=== PATIENT | female | born 1960 | race Caucasian/White ===

== ENCOUNTER 2017-06-07 02:56 | Emergency (ER) | payer BC ==
[2017-06-07 03:02] VITALS: BP 111/76
--- NOTE | 2017-06-07 07:22 | ED ---
Marcelino aLy SooYoung, scribed for Mason Newsome MD on 06/07/17 at 0307 . Medical Screening - HPI Summary HPI Summary: A 56 y/o F brought in by police presents to ED for legal blood draw. Denies injury, abd pain. Denies alcohol tonight. - History of Current Complaint Chief Complaint: EDGeneral Stated Complaint: LEGAL BLOOD DRAW Associated Signs and Symptoms: Negative PMH/Surg Hx/FS Hx/Imm Hx Previously Healthy: No Musculoskeletal History: Reports: Hx Back Problems - Chronic low back pain Psychiatric History: Reports: Hx Depression, Other Psychiatric Issues/Disorders - hx alcoholism, rehab - Cancer History Hx Chemotherapy: No Hx Radiation Therapy: No - Surgical History Surgery Procedure, Year, and Place: Right Hand Index Finger Surgery; Eye Surgery ; Tonsillectomy Infectious Disease History: Yes Infectious Disease History: Reports: Hx Hepatitis - hep b hx, Hx of Known/ Suspected MRSA Denies: Traveled Outside the [place] in Last 30 Days - Family History Known Family History: Positive: Other - Breast CA - Social History Occupation: Employed Full-time Lives: With Family Alcohol Use: None Hx Substance Use: No Substance Use Type: Reports: None Substance Use Comment - Amount & Last Used: In recovery foe 19 yrs Hx Tobacco Use: Yes Smoking Status (MU): Heavy Every Day Tobacco Smoker Type: Cigarettes Amount Used/How Often: 1 PPD Have You Smoked in the Last Year: Yes Review of Systems Negative: Fever Negative: Abdominal Pain All Other Systems Reviewed And Are Negative: Yes Physical Exam - Summary Physical Exam Summary: The patient is well-nourished in no acute distress and in no acute pain. Pt smells of ETOH. The skin is warm and dry and skin color reflects adequate perfusion. HEENT: The head is normocephalic and atraumatic. The pupils are equal and reactive. The conjunctivae are clear and without drainage. Nares are patent and without drainage. Mouth reveals moist mucous membranes and the throat is without erythema and exudate. The external ears are intact. The ear canals are patent and without drainage. = Neck is supple with full range of motion and non-tender. There are no carotid bruits. There is no neck vein distension. Respiratory: Chest is non-tender. Lungs are clear to auscultation and breath sounds are symmetrical and equal. Cardiovascular: Heart is regular rate and rhythm. There is no murmur or rub auscultated. There is no peripheral edema and pulses are symmetrical and equal. Abdomen: The abdomen is soft and non-tender. There are normal bowel sounds heard in all four quadrants and there is no organomegaly palpated. Musculoskeletal: There is no back pain noted. Extremities are non-tender with full range of motion. There is good capillary refill. There is no peripheral edema or calf tenderness elicited. Neurological: Patient is alert and oriented to person, place and time. The patient has symmetrical motor strength in all four extremities. Cranial nerves are grossly intact. Deep tendon reflexes are symmetrical and equal in all four extremities. Psychiatric: The patient has an appropriate affect and does not exhibit any anxiety or depression. Triage Information Reviewed: Yes Vital Signs On Initial Exam: Initial Vitals Temp Pulse Resp BP Pulse Ox 98 F 87 14 111/76 100 06/07/17 02:59 06/07/17 02:59 06/07/17 02:59 06/07/17 02:59 06/07/17 02:59 Vital Signs Reviewed: Yes Diagnostics - Vital Signs Vital Signs Temp Pulse Resp BP Pulse Ox 06/07/17 02:59 98 F 87 14 111/76 100 - Laboratory Lab Statement: Any lab studies that have been ordered have been reviewed, and results considered in the medical decision making process. Course/Dx - Diagnoses Provider Diagnoses: legal blood draw, no evidence of injuries Discharge - Discharge Plan Condition: Stable Disposition: OTHER Discharge Disposition Comment: Custody of police. Referrals: Aakash Aguillon MD [Primary Care Provider] - The documentation as recorded by the Marcelino reyes SooYoung accurately reflects the service I personally performed and the decisions made by , Mason Newsome MD.
== END 2017-06-07 03:21 ==
LOC: ED 02:56
DX: Z02.83 Encounter for blood-alcohol and blood-drug test (principal); F17.210 Nicotine dependence, cigarettes, uncomplicated
CPT/HCPCS: 99282

== ENCOUNTER 2018-05-07 14:43 | Emergency (ER) | payer BC ==
[2018-05-07 15:35] LABS: ABS Basophils 0 10^3/ul (0-0.2); ABS Eosinophils 0 10^3/ul (0-0.6); ABS Lymphocytes 1.8 10^3/ul (1.0-4.8); ABS Monocytes 0.4 10^3/ul (0-0.8); ABS Neutrophils 6.2 10^3/ul (1.5-7.7); ABS Nucleated RBC 0 10^3/ul; Eosinophil % 0.3 % (0-6); Hematocrit 38 % (35-47); Hemoglobin 12.7 g/dl (12.0-16.0); Lymphocyte % 21.4 % (25-47); Mean Corpuscular HGB Conc 34 g/dl (31-36); Mean Corpuscular Hemoglobin 29 pg (27-31); Mean Corpuscular Volume 85 fL (80-97); Mean Platelet Volume 7.9 um3 (7.4-10.4); Nucleated Red Blood Cells % 0.1; Platelet Count 381 10^3/ul (150-450); Red Cell Distribution Width 14 % (10.5-15); White Blood Count 8.4 10^3/ul (3.5-10.8)
--- NOTE | 2018-05-07 15:36 | ED ---
Psychiatric Complaint - HPI Summary HPI Summary: This is scribe Brent Slaughter documenting for attending Dr. Taz Mendoza This patient is a 57 year old F presenting to [facility] accompanied by her partner with a chief complaint of SIB since 1 year ago, but worse since 2 or 3 months ago. Pts partner is a nurse at [employer]. She endorses patient has a history of depression, has been picking at her skin compulsively, states patient sits in her car staring off for hours, sometimes doesnt come home at night, misses work the time, has a gambling problem, is anxious, and endorsed to her that she has SI. She states that patient has self-mutilated herself. 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 Patient needs someone to talk to and someone to help her with medications. Per patient: She endorses anxiety, compulsive behavior of picking skin. Pt has been in recovery for 21 years. Pt prescribed Pristiq, Adderall, and Xanax, but cannot take it Xanax due to needing to focus at work. Ill sit in the car, and the next thing I know, its 3 hours later. Patient denies SI, HI. Patient endorses checking out, and that the picking is unconscious, doesnt realize time has passed or that she is picking until she draws blood. In addition, pt claims that she forgets to breathe. Denies DM, HTN, HLD. Pt endorses smoking 2 ppd, does not drink, take substances. I, Dr. Mcghee personally performed the services described in this documentation as scribed in my presence and it is both accurate and complete. - History Of Current Complaint Chief Complaint: EDMentalHealth Time Seen by Provider: 05/07/18 14:58 Hx Obtained From: Patient, Other: - friends Onset/Duration: Gradual Onset, Lasting Weeks, Still Present, Worse Since - 2 to 3 months ago Timing: Constant Severity Initially: Mild Severity Currently: Moderate Character: Depressed, Anxious Aggravating Factor(s): Recent Stress - Work has picked up intensity Alleviating Factor(s): Nothing Associated Signs And Symptoms: Positive: Social Withdrawal Related History: Positive For: Prior Psychiatric Issues Has Suicidal: Denies: Thoughts Has Homicidal: Denies: Thoughts - Allergies/Home Medications Allergies/Adverse Reactions: Allergies Allergy/AdvReac Type Severity Reaction Status Date / Time milnacipran [From Savella] Allergy Dizziness Verified 05/07/18 15:18 Home Medications: Home Medications ALPRAZolam TAB* [Xanax TAB*] 0.5 mg PO BID PRN 05/07/18 [History Confirmed 05/07] Dextroamphetamine/Amphetamine [Adderall 20 mg Tablet] 20 mg PO TID 05/07/18 [ History Confirmed 05/07/18] Dextroamphetamine/Amphetamine [Adderall Xr 30 mg Capsule] 30 mg PO DAILY [History Confirmed 05/07/18] Ibuprofen TAB* [Motrin TAB* 600 MG] 600 mg PO TID PRN 05/07/18 [History Confirmed 05/07/18] PMH/Surg Hx/FS Hx/Imm Hx Endocrine/Hematology History: Denies: Hx Diabetes, Hx Sickle Cell Disease Cardiovascular History: Denies: Hx Hypercholesterolemia, Hx Hypertension Musculoskeletal History: Reports: Hx Back Problems - Chronic low back pain Sensory History: Reports: Hx Contacts or Glasses Denies: Hx Legally Blind, Hx Deafness Opthamlomology History: Reports: Hx Contacts or Glasses Denies: Hx Legally Blind EENT History: Denies: Hx Deafness Psychiatric History: Reports: Hx Anxiety, Hx Depression, Other Psychiatric Issues/Disorders - hx alcoholism, rehab - Cancer History Hx Chemotherapy: No Hx Radiation Therapy: No - Surgical History Surgery Procedure, Year, and Place: Right Hand Index Finger Surgery; Eye Surgery ; Tonsillectomy Infectious Disease History: No Infectious Disease History: Reports: Hx Hepatitis - hep b hx, Hx of Known/ Suspected MRSA Denies: Traveled Outside the [place] in Last 30 Days - Family History Known Family History: Positive: Other - Breast CA - Social History Occupation: Employed Full-time Lives: With Family Alcohol Use: None Hx Substance Use: No Substance Use Type: Reports: None Substance Use Comment - Amount & Last Used: In recovery for 21 years Hx Tobacco Use: Yes Smoking Status (MU): Heavy Every Day Tobacco Smoker Type: Cigarettes Amount Used/How Often: 2 PPD Have You Smoked in the Last Year: Yes Review of Systems Negative: Fever Positive: no symptoms reported Positive: Other - wounds from picking, all over body, some new and some chronic Positive: Anxious, Depressed All Other Systems Reviewed And Are Negative: Yes Physical Exam - Summary Physical Exam Summary: VITAL SIGNS: Reviewed. GENERAL: Patient is a well-developed and nourished female who is lying comfortable in the stretcher. Patient is not in any acute respiratory distress. HEAD AND FACE: No signs of trauma. No ecchymosis, hematomas or skull depressions. No sinus tenderness. EYES: PERRLA, EOMI x 2, No injected conjunctiva, no nystagmus. EARS: Hearing grossly intact. Ear canals and tympanic membranes are within normal limits. MOUTH: Oropharynx within normal limits. NECK: Supple, trachea is midline, no adenopathy, no JVD, no carotid bruit, no c- spine tenderness, neck with full ROM. CHEST: Symmetric, no tenderness at palpation LUNGS: Clear to auscultation bilaterally. No wheezing or crackles. CVS: Regular rate and rhythm, S1 and S2 present, no murmurs or gallops appreciated. ABDOMEN: Soft, non-tender. No signs of distention. No rebound no guarding, and no masses palpated. Bowel sounds are normal. EXTREMITIES: FROM in all major joints, no edema, no cyanosis or clubbing. NEURO: Alert and oriented x 3. No acute neurological deficits. Speech is normal and follows commands. SKIN: Dry and warm, multiple areas of picked skin of different maturities, some chronic and some acute. PSYCH: Anxious, denies any suicidal thoughts or plan. No homicidal thoughts or plan. No signs of psychosis or pressure speech. No tangential speech. Triage Information Reviewed: Yes Vital Signs On Initial Exam: Initial Vitals Temp Pulse Resp BP Pulse Ox 99.2 F 87 20 130/110 96 05/07/18 14:46 05/07/18 14:46 05/07/18 14:46 05/07/18 14:46 05/07/18 14:46 Vital Signs Reviewed: Yes Diagnostics - Vital Signs Vital Signs Temp Pulse Resp BP Pulse Ox 05/07/18 14:46 99.2 F 87 20 130/110 96 - Laboratory Result Diagrams: 05/07/18 15:28 05/07/18 15:28 Lab Statement: Any lab studies that have been ordered have been reviewed, and results considered in the medical decision making process. Course/Dx - Course Assessment/Plan: Blood test results without any significant abnormality. Patient is medically clear. Patient is awaiting for mental health evaluation. Pateint is signed out to Dr. Jacobsen at shift change - Differential Dx/Clinical Impression Differential Diagnosis/HQI/PQRI: Positive: Anxiety, Depression Provider Diagnosis: Anxiety Discharge - Sign-Out/Discharge Documenting (check all that apply): Sign-Out Patient Signing out patient TO: Phan Jacobsen - [facility] - Discharge Plan Disposition: HOME Patient Education Materials: Anxiety (ED) Referrals: [facility] [Outside] (Please follow up as needed with [facility]) Aakash Aguillon MD [Primary Care Provider] - - Billing Disposition and Condition Disposition: Home
[2018-05-07 15:55] LABS: EGFR Non-African American 89.5 (>60)
[2018-05-07 16:14] LABS: Urine Appearance Cloudy; Urine Blood 1+ (Negative); Urine Color Yellow; Urine Ketones Trace (Negative); Urine Protein Negative (Negative); Urine Red Blood Cell 3+(>10/hpf) (Absent); Urine Specific Gravity 1.028 (1.010-1.030); Urine Urobilinogen Negative (Negative); Urine White Blood Cell 2+(11-20/hpf) (Absent)
[2018-05-07] MEDS ORDERED: Potassium Chlor TAB* 20 MEQ TAB.ER PO ONE (17:19)
--- NOTE | 2018-05-07 19:06 | ED ---
Progress - Progress Note Progress Note: This is scribe Phil Franco documenting for attending Phan Jacobsen MD. 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 Patient is now waiting on a Mental Health Evaluation. Patient was signed out from Dr. Mcghee during a shift change. I, Dr. Jacobsen, personally performed the services described in this documentation as scribed in my presence and it is both accurate and complete. Course/Dx - Diagnoses Provider Diagnoses: Anxiety Discharge - Sign-Out/Discharge Documenting (check all that apply): Receiving Sign-Out Receiving patient FROM: Nick cMghee - Awaiting [facility] - Discharge Plan Referrals: Aakash Aguillon MD [Primary Care Provider] -
[2018-05-07 20:50] VITALS: BP 148/89
== END 2018-05-07 20:47 | disposition home or self-care (01) ==
LOC: ED 14:43
DX: F41.9 Anxiety disorder, unspecified (principal); F17.210 Nicotine dependence, cigarettes, uncomplicated; Z88.8 Allergy status to other drugs, medicaments and biological substances
CPT/HCPCS: 36415; 80053; 80307; 80320; 80329; 81003; 81015; 84443; 85025; 87086; 99284; A9270-GY; G0480